=== PATIENT | female | born 1935 | race Caucasian/White ===

== ENCOUNTER 2018-02-08 20:22 | Emergency (ER) | payer OTHER, BC ==
[~2018-02-08] VITALS: Ht 157.5 cm; Wt 73.5 kg
[~2018-02-08 20:22] MED LIST: ADULT LOW DOSE81 M1 PO; ANTIDEPRESSANT; ARICEPT10 MG PO; ASPIR 8181 M1 PO; ATORVASTATIN CA40 MG PO; BENADRYL ALLERG25 MG PO; CALCIUM 500 +1 EAC4 PO; CEPHALEXIN500 MG PO; CYANOCOBAL1000 MCG/2 IM; DESYREL100 MG PO; GINKGO BILOBA60 MG PO; KEFLEX500 MG PO; LO-DOSE ASPIRIN81 M1 PO; MELOXICAM15 MG PO; ONE-A-DAY ESSE1 EAC1 PO; PROTONIX20 MG PO; RANITIDINE HCL150 MG PO; SYNTHROID150 MCG PO; SYNTHROID75 MCG PO; VITAMIN B-121000 MC1 SL; ZYRTEC10 M3 PO
[2018-02-08 20:52] LABS: BASOPHIL (%) 0.4 % (0-1); EOSINOPHIL (%) 2.3 % (0-5); EOSINOPHIL COUNT 0.2 K/uL (0-0.3); HEMATOCRIT 38.8 % (36.0-46.0); HEMOGLOBIN 13.4 G/DL (11.9-15.5); IMMATURE GRANULOCYTE (%) 0.3 % (0.0-0.7); LYMPHOCYTE (%) 21.4 % (15-42); LYMPHOCYTE COUNT 2.1 K/uL (1.0-2.8); MCH 32.3 PG (29.0-34.0); MCHC 34.5 G/DL (30.0-36.0); MCV 93.5 FL (83-99); MONOCYTE (%) 8.6 % (3-12); MONOCYTE COUNT 0.8 K/uL (0-0.8); NEUTROPHIL COUNT 6.6 K/uL (1.8-6.4); PLATELET COUNT 295 K/uL (156-360); RBC DIS.WIDTH-SD 44.5 % (39-53); RED BLOOD COUNT 4.15 M/uL (3.80-5.20); WHITE BLOOD COUNT 9.8 K/uL (4.1-10.2)
[2018-02-08 21:01] LABS: ALBUMIN 4.1 g/dL (3.2-4.8)
[2018-02-08 21:02] LABS: CHLORIDE 110 mEq/L (99-109); POTASSIUM 3.7 mEq/L (3.7-5.4); SODIUM 142 mEq/L (136-147)
[2018-02-08 21:04] LABS: GLUCOSE 109 mg/dL (70-99); TOTAL PROTEIN 7.7 g/dL (6.4-8.3)
[2018-02-08 21:06] LABS: TOTAL BILIRUBIN 0.8 mg/dL (0.0-1.0)
[2018-02-08 21:07] LABS: ALKALINE PHOSPHATASE 83 IU/L (3-129)
[2018-02-08 21:08] LABS: CREATININE 0.8 mg/dL (0.6-1.3); GFR ESTIMATE (CALCULATED) > 59 mL/min/
[2018-02-08 21:09] LABS: AST (GOT) 19 IU/L (2-34); UREA NITROGEN (BUN) 12 mg/dL (9-23)
[2018-02-08 21:11] LABS: ALT (GPT) 15 IU/L (3-49)
[2018-02-08 21:14] LABS: TROP-I INTERPRETATION NEGATIVE; TROPONIN-I < 0.01 ng/mL (0.0-0.30)
[2018-02-08 21:28] LABS: D-DIMER ELISA < 150.00 ng/mLDDU (<230)
[2018-02-08 23:33] LABS: TROP-I INTERPRETATION NEGATIVE; TROPONIN-I < 0.01 ng/mL (0.0-0.30)
[2018-02-09 01:22] LABS: APPEARANCE SL.HAZY ((CLEAR)); BILIRUBIN NEGATIVE; BLOOD NEGATIVE; COLOR YELLOW ((YELLOW)); GLUCOSE (STRIP) NEGATIVE; KETONES NEGATIVE; LEUKOCYTES TRACE; NITRITE NEGATIVE; PROTEIN (STRIP) NEGATIVE; SPECIFIC GRAVITY 1.018 (1.000-1.030); UROBILINOGEN 0.2 MG/DL (0.2-1.0)
[2018-02-09 01:26] LABS: BACTERIA NONE SEEN /HPF; EPITHELIAL CELLS 2+ /HPF; MUCUS 1+ /LPF; RED BLOOD CELLS 0-5 /HPF (0-5); UCUL ADDED? YES
[2018-02-09] MEDS ORDERED: PROVENTIL HFA6.7 GM IH (01:30)
[2018-02-09 01:51] VITALS: BP 144/72
== END 2018-02-09 01:51 | disposition home or self-care (01) ==
LOC: EME 20:22
PROVIDERS: Emergency Medicine
DX: J40 Bronchitis, not specified as acute or chronic (principal); E03.9 Hypothyroidism, unspecified; Z79.82 Long term (current) use of aspirin; Z88.8 Allergy status to other drugs, medicaments and biological substances; Z88.5 Allergy status to narcotic agent
CPT/HCPCS: 71046; 71250; 80053; 81003; 83880; 84484; 85025; 85379; 87077; 87086; 87186; 93005; 94640; 99281; 99285

== ENCOUNTER 2018-02-26 17:51 | Emergency (ER) | payer OTHER, BC ==
[~2018-02-26] VITALS: Ht 152.4 cm; Wt 63.0 kg
[~2018-02-26 17:51] MED LIST changes: +PROVENTIL HFA6.7 GM IH
[2018-02-26 19:43] LABS: BASOPHIL (%) 0.7 % (0-1); BASOPHIL COUNT 0.1 K/uL (0-0.1); EOSINOPHIL (%) 3.1 % (0-5); EOSINOPHIL COUNT 0.3 K/uL (0-0.3); HEMATOCRIT 39.4 % (36.0-46.0); HEMOGLOBIN 13.6 G/DL (11.9-15.5); IMMATURE GRANULOCYTE (%) 0.2 % (0.0-0.7); LYMPHOCYTE (%) 30.3 % (15-42); LYMPHOCYTE COUNT 2.5 K/uL (1.0-2.8); MCH 32.3 PG (29.0-34.0); MCHC 34.5 G/DL (30.0-36.0); MCV 93.6 FL (83-99); MONOCYTE (%) 6.9 % (3-12); MONOCYTE COUNT 0.6 K/uL (0-0.8); NEUTROPHIL (%) 58.8 % (45-76); NEUTROPHIL COUNT 4.9 K/uL (1.8-6.4); PLATELET COUNT 287 K/uL (156-360); RBC DIS.WIDTH-SD 44.4 % (39-53); RED BLOOD COUNT 4.21 M/uL (3.80-5.20); WHITE BLOOD COUNT 8.4 K/uL (4.1-10.2)
[2018-02-26 20:46] LABS: INTER. NORMALIZED RATIO 1.1
[2018-02-26 20:49] LABS: PTT 32.2 SEC (25-37)
[2018-02-26 20:50] LABS: CHLORIDE 108 mEq/L (99-109); POTASSIUM 4.1 mEq/L (3.7-5.4); SODIUM 143 mEq/L (136-147)
[2018-02-26 20:52] LABS: GLUCOSE 89 mg/dL (70-99)
[2018-02-26 20:56] LABS: CREATININE 0.7 mg/dL (0.6-1.3); GFR ESTIMATE (CALCULATED) > 59 mL/min/
[2018-02-26 20:57] LABS: UREA NITROGEN (BUN) 9 mg/dL (9-23)
[2018-02-26] MEDS ORDERED: XARELTO15 MG PO (21:31)
[2018-02-26 22:28] VITALS: BP 146/72
== END 2018-02-26 22:31 | disposition home or self-care (01) ==
LOC: EME 17:51
PROVIDERS: Emergency Medicine
DX: I82.442 Acute embolism and thrombosis of left tibial vein (principal); E03.9 Hypothyroidism, unspecified; Z79.82 Long term (current) use of aspirin; Z88.5 Allergy status to narcotic agent; Z88.2 Allergy status to sulfonamides; Z88.1 Allergy status to other antibiotic agents; Z88.0 Allergy status to penicillin
CPT/HCPCS: 80048; 85025; 85610; 85610 GA; 85730; 85730 GA; 93971; 99281; 99284